=== PATIENT | male | born 1995 | race Caucasian/White ===

== ENCOUNTER 2016-06-13 09:31 | Emergency (ER) | payer OTHER ==
[2016-06-13 09:37] VITALS: RESP 16
[2016-06-13] MEDS ORDERED: BICILLIN C-R 1200000 UNIT/2 ML SYRINGE IM ONE (10:03)
[2016-06-13] MEDS ORDERED: DEXAMETHASONE 4 MG TAB PO ONE (10:03)
--- NOTE | 2016-06-13 10:06 | EDPHY ---
H & P Stated Complaint: sore throat x 3 days Source: Patient Exam Limitations: No limitations - Personal History Current Tetanus/Diphtheria Vaccine: Unsure Current Tetanus Diphtheria and Acellular Pertussis (TDAP): Unsure - Medical/Surgical History Hx Asthma: No Hx Chronic Respiratory Disease: No Hx Diabetes: No Hx Cardiac Disease: No Hx Renal Disease: No Hx Cirrhosis: No Hx Alcoholism: No Hx HIV/AIDS: No Hx Splenectomy or Spleen Trauma: No Other PMH: denies - Social History Smoking Status: Never smoked Time Seen by Provider: 06/13/16 09:38 HPI/ROS: CHIEF COMPLAINT: sore throat, fever HISTORY OF PRESENT ILLNESS: 20-year-old male presents with a 3 day history of sore throat, mild nasal congestion, headache. Last night he had a temperature of a 101degrees. Patient reports ibuprofen help relieve symptoms. Yesterday his sore throat became significantly worse and he noticed pus on his tonsils. He woke up this morning with difficulty swallowing due to the pain. Patient denies cough. No shortness of breath, no ear pain, no neck pain. He denies nausea, vomiting or diarrhea, no abdominal pain. REVIEW OF SYSTEMS: A comprehensive 10 point review of systems is otherwise negative aside from elements mentioned in the history of present illness. (Any Gifford) - Physical Exam Exam: General: Alert, nontoxic. ENT: Tympanic membranes clear, external auditory canal, external ear and surrounding soft tissue including over the mastoid unremarkable. Nasopharynx is with mild injection, there is no rhinorrhea. Oropharynx with moderate erythema. There is moderate exudate to bilateral tonsils. Bilateral tonsillar hypertrophy. No asymmetry. The uvula is midline. No elevation of tongue. There is no hoarseness. No drooling, patient has good control of their oral secretions. No trismus. No stridor. Cardiac: Regular rate and rhythm. Respiratory: Lungs clear to auscultation bilaterally. Neurological: no meningismus. Skin: No rashes. (Any Gifford) Constitutional: Initial Vital Signs Temperature (C) 37.1 C 06/13/16 09:33 Heart Rate 94 06/13/16 09:33 Respiratory Rate 16 06/13/16 09:33 Blood Pressure 113/65 06/13/16 09:33 O2 Sat (%) 98 06/13/16 09:33 O2 Delivery Mode Room Air Allergies/Adverse Reactions: No Known Allergies Allergy (Unverified 06/13/16 09:33) Home Medications: Medication Instructions Recorded Fluticasone Nasal [Flonase Nasal 2 sprays NASAL DAILY #1 mdi 06/13/16 [place] (RX)] Medical Decision Making ED Course/Re-evaluation: 20-year-old male presents with acute tonsillitis with exudate on both tonsils. He is nontoxic appearing, managing his secretions well. Patient is given IM penicillin. He is discharged with a prescription for Flonase, instructed to take Tylenol and ibuprofen alternating them and he is given return precautions for any difficulty managing his secretions, shortness of breath, chest pain, any other questions or concerns. (Any Gifford) Differential Diagnosis: Diagnosis considered but not limited to strep pharyngitis, viral pharyngitis, tonsillitis, epiglottitis, Phil's angina, peritonsillar abscess (Any Gifford) Other Provider: This patient was evaluated and managed by the nurse practitioner. I have reviewed the chart and agree with the findings and plan of care as documented. ( Kaylyn Do) - Data Points Laboratory Results: 06/13/16 09:43 Influenza Typ A,B (DFA) NEGATIVE FOR FLU (NEGATIVE) Group A Strep Screen Cancelled Medications Given: Discontinued Medications Dexamethasone (Decadron) 10 mg PO EDNOW ONE Stop: 06/13/16 10:04 Last Admin: 06/13/16 10:20 Dose: 10 mg Penicillin G Procaine/Benzathine (Bicillin C-R 1.2mm Units Syr) 1,200,000 unit IM ONCE ONE PRN Reason: Protocol Stop: 06/13/16 10:04 Last Admin: 06/13/16 11:05 Dose: 1,200,000 unit Departure - Departure Disposition: Home, Routine, Self-Care Clinical Impression: Tonsillitis with exudate Condition: Good Instructions: Tonsillitis (ED) Additional Instructions: Take over the counter Tylenol and ibuprofen as instructed. 600 mg of ibuprofen every 8 hours and 650 mg of Tylenol every 8 hours alternating them every 4. Rest , drink plenty of fluids. Use a saline nasal rinse, humidifier at night, hot steam showers. Use Flonase, 2 sprays each nostril daily for 7 days. Return to the ED for difficulty breathing, chest pain, unable to manage your secretions other concerns. Prescriptions: Fluticasone Nasal [Flonase Nasal [place] (RX)] 2 sprays NASAL DAILY #1 mdi
[2016-06-13 11:08] VITALS: BP 112/63; PULSE 65; TEMP 98.2; O2SAT 97
== END 2016-06-13 11:07 | disposition home or self-care (01) ==
DX: J03.90 Acute tonsillitis, unspecified (principal)